=== PATIENT | female | born 1975 | race Caucasian/White ===

== ENCOUNTER 2020-05-17 18:00 | Emergency (ER) | payer OTHER ==
[~2020-05-17] VITALS: Ht 165.1 cm; Wt 79.0 kg
--- NOTE | 2020-05-17 18:53 | PHYS DOC ---
Past History Past Medical History: DVT, Other Additional Past Medical Histor: UNDIAGNOSED AUTO-IMMUNE DISEASE Past Surgical History: Hysterectomy, Other Additional Past Surgical Histo: BREAST FIBROIDS REMOVED Alcohol Use: Rarely General Adult EDM: Chief Complaint: LOWEREXTREMITY INJURY HPI: HPI: 45-year-old female past medical history significant for provoked right lower extremity DVT in July 2016 (postoperative) and bl hand swelling w/elevated WINSTON, on hydroxy chloroquine (no official rheumatologic diagnosis), presents to the ED with complaints of right lower extremity swelling for the past 2 days. Patient states she did not have any leg swelling when she developed her DVT in the past. 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 Measured her calf circumference. Right lower extremity circumference was 15 and 3/4 inches. Left lower extremity was 15 and 1/4 inches. No history of a pulmonary embolus. Was on Eliquis for 6 months with resolution of DVT in 2015. ROS: Denies associated fever, chills, cough, sore throat, dyspnea, hemoptysis, chest pain or pressure, orthopnea, abdominal pain, back pain, headache, neck stiffness, diaphoresis or rash. Allergies: Allergies: Allergies Coded Allergies Type Severity Reaction Last Updated Verified Sulfa (Sulfonamide Antibiotics) Allergy Unknown 05/17/20 Yes Physical Exam: PE: Constitutional: Well developed, well nourished, no acute distress, non-toxic appearance. [] HENT: Normocephalic, atraumatic, nose normal. [] Eyes: EOMI, conjunctiva normal, no discharge. [] Neck: Normal range of motion, no tenderness, supple, no stridor. [] Cardiovascular:Heart rate regular rhythm, no murmur [] Lungs & Thorax: Speaking in full sentences, bilateral equal chest rise Abdomen: soft, no tenderness, Skin: Warm, dry, no erythema, no rash. [] Back: No tenderness, no CVA tenderness. [] Extremities: No tenderness, no cyanosis, no clubbing, ROM intact, slightly increased right calve, equal LE PT pulses Neurologic: Alert and oriented X 3, normal motor function, normal sensory function, no focal deficits noted. [] Psychologic: Affect normal, judgement normal, mood normal. [] Current Patient Data: Vital Signs: Vital Signs Date Time Temp Pulse Resp B/P (MAP) Pulse Ox O2 Delivery O2 Flow Rate FiO2 05/17/20 18:10 98.7 95 20 120/64 (82) 98 Room Air EKG: EKG: [] Radiology/Procedures: Radiology/Procedures: IMAGING REPORT Signed PATIENT: SHANNA SOLOMON ACCOUNT: [id number] : 1975 LOCATION: ER AGE: 45 SEX: F EXAM STATUS: REG ER ORD. PHYSICIAN: SASHA MATA DO REASON: RLE swelling PROCEDURE: VENOUS LOWER EXTREMITY RIGHT VENOUS LOWER EXTREMITY RIGHT History: Reason: RLE swelling / Spl. Instructions: / History: Comparison: None. Discussion: Multiple longitudinal and transverse high resolution real-time images of the venous system of right lower extremity were obtained with color and Doppler sampling. The common femoral, superficial femoral, popliteal and proximal calf veins are all patent and demonstrate normal flow and compressibility. Normal respiratory phasicity and augmentation is present. Impression: 1. No evidence of deep vein thrombosis. Electronically signed by: Rick Velasco DO (05/17/2020 8:10 PM) [facility] DICTATED AND SIGNED BY: RICK VELASCO DO DATE: 05/17/202009 CC: PCP,PENNIE; SASHA MATA DO; FARNAZ STRICKLAND DO ~ Impressions: Concern for slight right lower extremity swelling, patient worried for DVT given her prior history and normal physical exam findings. Duplex ultrasound unremarkable for DVT. I advised patient that if swelling should persist, to repeat ultrasound in 1 week. Life-threatening processes were considered but are low suspicion given patient's history and physical exam. Encouraged PMD follow-up. All patient's questions were answered and she was stable at time of discharge. Differential includes fracture, dislocation, laceration, osteomyelitis, compartment syndrome, DVT, PE, neurovascular injury or deficit, infection (abscess, cellulitis, septic arthritis) I spoken with the patient and her caregivers. I explained the patient's condition, diagnoses and treatment plan based on the information available to me at this time. I have answered the patient and her caregiver's questions and addressed any concerns. The patient and her caregivers have a good understanding of patient's diagnosis, condition and treatment plan as can be exp ected at this point. Vital signs have been stable. Patient's condition is stable and appropriate for discharge from the emergency department. Patient will pursue further outpatient evaluation with primary care physician or other designated or consulting physician as outlined in the discharge instructions. The patient and/or caregivers are agreeable to this plan of care and follow-up instructions have been explained in detail. The patient and/or caregivers have received these instructions in written form and have expressed an understanding of the discharge instructions. The patient and/or caregivers are aware that any significant change of condition or worsening of symptoms should prompt immediate return to this or the closest emergency department or c all to 911. Course & Med Decision Making: Course & Med Decision Making Pertinent Labs and Imaging studies reviewed. (See chart for details) Wells criteria for DVT 1 points Moderate risk group for DVT. Wells criteria for pulmonary embolus 1.5 points Low risk group: 1.3% chance of PE in an ED population. Another study assigned scores ? 4 as PE Unlikely and had a 3% incidence of PE. Maicol Disclaimer: Maicol Disclaimer: This electronic medical record was generated, in whole or in part, using a voice recognition dictation system. Departure Departure: Impression: Primary Impression: Swelling of right lower extremity Disposition: HOME/RESIDENCE PRIOR TO ADM Condition: STABLE Referrals: PCP,NO (PCP) Patient Instructions: Peripheral Edema Justification of Admission: Justification of Admission: Justification of Admission Dx: N/A FARNAZ STRICKLAND DO May 17, 2020 18:53
--- NOTE | 2020-05-17 20:13 | RAD ---
VENOUS LOWER EXTREMITY RIGHT History: Reason: RLE swelling / Spl. Instructions: / History: Comparison: None. Discussion: Multiple longitudinal and transverse high resolution real-time images of the venous system of right lower extremity were obtained with color and Doppler sampling. The common femoral, superficial femoral, popliteal and proximal calf veins are all patent and demonstrate normal flow and compressibility. Normal respiratory phasicity and augmentation is present. Impression: 1. No evidence of deep vein thrombosis. Electronically signed by: Rick Velasco DO (05/17/2020 8:10 PM) [facility]
[2020-05-17 20:35] VITALS: BP 145/71
== END 2020-05-17 20:35 | disposition home or self-care (01) ==
LOC: ER 18:00
DX: R22.41 Localized swelling, mass and lump, right lower limb (principal); Z86.718 Personal history of other venous thrombosis and embolism; Z79.899 Other long term (current) drug therapy; Z88.2 Allergy status to sulfonamides
CPT/HCPCS: 93971; 99284-25